=== PATIENT | female | born 1990 | race Caucasian/White ===

== ENCOUNTER 2019-11-06 18:53 | Emergency (ER) | payer OTHER ==
[~2019-11-06] VITALS: Ht 175.3 cm; Wt 71.7 kg
[2019-11-06] MEDS ORDERED: DOXYCYCLINE 10100 MG PO ×2 (19:33→20:09)
[2019-11-06] MEDS ORDERED: CLINDAMYCIN PHO40 GM VAG ×2 (19:33→20:10)
[2019-11-06] MEDS ORDERED: HYDROCODON-ACE1 EAC8 PO ×2 (19:34→20:10)
[2019-11-06 20:20] VITALS: BP 128/80
== END 2019-11-06 20:21 | disposition home or self-care (01) ==
LOC: M.ERS 18:53 → EDBD 18:53 → M.ERS 20:21
DX: N76.0 Acute vaginitis (principal); N61.0 Mastitis without abscess; Z88.0 Allergy status to penicillin

== ENCOUNTER 2020-03-31 13:56 | Emergency (ER) | payer OTHER ==
[~2020-03-31] VITALS: Ht 175.3 cm; Wt 68.0 kg
[~2020-03-31 13:56] MED LIST: CLINDAMYCIN PHO40 GM VAG; DOXYCYCLINE 10100 MG PO; HYDROCODON-ACE1 EAC8 PO
[2020-03-31 14:21] LABS: URINE BILIRUBIN NEGATIVE (Negative); URINE BLOOD 1+ (Negative); URINE CLARITY CLEAR; URINE COLOR YELLOW; URINE GLUCOSE-RANDOM NEGATIVE (Negative); URINE KETONES NEGATIVE (Negative); URINE LEUKOCYTES-REFLEX NEGATIVE (Negative); URINE NITRITE-REFLEX NEGATIVE (Negative); URINE PROTEIN NEGATIVE (Negative); URINE UROBILINOGEN 0.2 E.U./dl (0.2-1.0)
[2020-03-31 14:32] LABS: SQUAMOUS 0-3 Few /LPF (0-3)
[2020-03-31 14:33] LABS: BACTERIA-REFLEX 1-9 Few /HPF (None Seen); CASTS None Seen /LPF (None Seen); CRYSTALS None Seen /LPF (None Seen); URINE RBC 0-2 Rare /HPF (0-2); URINE WBC-REFLEX 0-5 Rare /HPF (0-5)
[2020-03-31] MEDS ORDERED: SUPRAX400 M1 PO ×2 (14:50→14:51)
[2020-03-31] MEDS ORDERED: AZITHROMYCIN 2250 MG PO (14:51)
[2020-03-31 15:13] VITALS: BP 135/73
== END 2020-03-31 15:15 | disposition home or self-care (01) ==
LOC: M.ERS 13:56
PROVIDERS: Family Medicine
DX: N89.8 Other specified noninflammatory disorders of vagina (principal); Z88.0 Allergy status to penicillin